=== PATIENT | female | born 1990 | race Caucasian/White ===

== ENCOUNTER → 2018-09-24 | Outpatient (CLI) | payer MEDICAID ==
[~2018-09-24] MED LIST: CETI10CA8 PO; DIPH-740 PO; ESOM20SU2 PO; FLUINH INH; HYDR2TAB4 PO; IBUP800T37 PO; LOR5/325 PO; MONT10TA PO; NO CURRENT MEDS; OMEP-125 PO; ONDA4TAB PO; OXYC-865 PO; PANT40TA65 PO; PNV1CAPS53 PO; PREN-127 PO; PROG200C16 PO; PROM-110 PO; SULF-198 PO; TRIA10.8
[2018-09-24 10:46] LABS: PLATELET COUNT, AUTOMATED 259 K/uL (150-450)
== END ==
LOC: LAB 07:57
PROVIDERS: ATTEND Obstetrics & Gynecology
DX: Z34.90 Encounter for supervision of normal pregnancy, unspecified, unspecified trimester (principal)
CPT/HCPCS: 36415; 81001; 85025; 86592; 86703; 86762; 86850; 86900; 86901; 87088; 87340

== ENCOUNTER → 2018-10-18 | Outpatient (CLI) | payer BC ==
[~2018-10-18] MED LIST changes: +FLU60SYR36 IM
== END ==
LOC: LAB 11:15
PROVIDERS: ATTEND Student in an Organized Health Care Education/Training Program
DX: Z34.91 Encounter for supervision of normal pregnancy, unspecified, first trimester (principal)
CPT/HCPCS: 87491; 87591

== ENCOUNTER → 2018-12-06 | Outpatient (CLI) | payer BC ==
[~2018-12-06] MED LIST changes: +AMOX875T60 PO
== END ==
LOC: LAB 09:36
PROVIDERS: ATTEND Advanced Practice Midwife
DX: N89.8 Other specified noninflammatory disorders of vagina (principal)
CPT/HCPCS: 87210

== ENCOUNTER → 2018-12-27 | Outpatient (CLI) | payer BC ==
--- NOTE | 2018-12-27 13:41 | RADIOLOGY IMAGING REPORT ---
FACILITY: [facility] PATIENT NAME: Tila Whitten : 1990 MR: [id number] V: [id number] EXAM DATE: ORDERING PHYSICIAN: KEMAL LEGER TECHNOLOGIST: Location: [facility] Patient: Tila Whitten : 1990 Visit/Account:[id number] Date of Sevice: 12/27/2018 EXAMINATION: Ultrasound transabdominal OB > 14 weeks with anatomic evaluation HISTORY: 20 week anatomical survey COMPARISON: None. TECHNIQUE: Transabdominal imaging was performed for assessment of the fetus and maternal pelvic structures. T ransvaginal imaging was not performed. FINDINGS: Placenta: Anterior without previa. Uterus: Gravid, otherwise normal Cervix: Long and closed. Maternal Ovaries: Not visualized. Maternal and other adnexa findings: Negative. Intrauterine gestations: One. presentation: Variable heart rate: Normal and regular at 149 bpm Amniotic fluid index: 1022 cm Largest amniotic fluid pocket: 4.31 cm Gestational Parameters: BPD: 4.5 cm 19 weeks/ five days, 52nd percentile HC: 17.13 cm 19 weeks/ six days, 50th percentile AC: 14.3 cm 19 weeks/ five days, 47th percentile FL: 3.14 cm 19 weeks/ six days, 49th percentile Average ultrasound age (AUA): 19 weeks/six days, JOSE C 05/17/2019 Estimated gestational age by JOSE C: 19 weeks/four days, JOSE C 05/19/2019 Estimated weight (EFW): 308 grams +/- 45 grams EFW for JOSE C: 53 percentile Anatomic Survey: Intracranial structures, 4-chamber heart, stomach, kidneys, urinary bladder, spine, 3-vessel cord and cord insertion are unremarkable. Two upper and two lower extremities visualized. Cardiac ventricula r outflow tracts, palate and lips are unremarkable in appearance. IMPRESSION: Single viable fetus in variable presentation with an estimated gestational age by measur ements of 19 weeks and six days. Estimated weight is 308 g equivalent to the 53rd percentile Report Dictated By: Adriana Cruz MD at 12/27/2018 1:19 PM Report E-Signed By: Adriana Cruz MD at 12/27/2018 1:37 PM WSN:[email or web address]
== END ==
LOC: US 08:46
PROVIDERS: ATTEND Advanced Practice Midwife
DX: Z02.9 Encounter for administrative examinations, unspecified (principal)

== ENCOUNTER → 2019-02-14 | Outpatient (CLI) | payer BC ==
[~2019-02-14] MED LIST changes: +DIPH0.5S2 IM
[2019-02-14 09:41] LABS: PLATELET COUNT, AUTOMATED 250 K/uL (150-450)
== END ==
LOC: LAB 08:10
PROVIDERS: ATTEND Advanced Practice Midwife
DX: Z34.92 Encounter for supervision of normal pregnancy, unspecified, second trimester (principal)
CPT/HCPCS: 36415; 82950; 85025

== ENCOUNTER 2019-02-23 15:45 | Outpatient (CLI) | payer BC ==
[~2019-02-23] VITALS: Ht 159.5 cm; Wt 79.4 kg
[2019-02-23 16:07] VITALS: BP 126/73; Ht 159.5 cm; Wt 79.4 kg
[2019-02-23] MEDS ORDERED: NIFEdipine 10 MG CAP PO ONE (16:40)
== END 2019-02-23 17:40 | disposition home or self-care (01) ==
LOC: OB 15:45 → UNDOADMIN 15:45 → L&D 15:45 → UNDODISIN 17:40 → L&D 17:40 → EDSTATUS 03-02 11:07
PROVIDERS: ATTEND Obstetrics & Gynecology
DX: O47.03 False labor before 37 completed weeks of gestation, third trimester (principal); Z3A.28 28 weeks gestation of pregnancy
CPT/HCPCS: 59025; 99213

== ENCOUNTER → 2019-02-23 | Outpatient (CLI) | payer BC | LOC: LAB 15:24 | PROVIDERS: ATTEND Obstetrics & Gynecology | DX: O47.9 False labor, unspecified (principal) | CPT/HCPCS: 87210 ==

== ENCOUNTER → 2019-03-21 | Outpatient (CLI) | payer BC ==
[2019-02-23 16:07] VITALS: BMI 31.2
[~2019-03-21] MED LIST changes: -OMEP-125 PO; +OMEP-126 PO
[2019-03-21 14:15] LABS: PLATELET COUNT, AUTOMATED 290 K/uL (150-450)
== END ==
LOC: LAB 14:03
PROVIDERS: ATTEND Advanced Practice Midwife
DX: Z86.2 Personal history of diseases of the blood and blood-forming organs and certain disorders involving the immune mechanism (principal)
CPT/HCPCS: 36415; 85025

== ENCOUNTER → 2019-04-01 | Outpatient (CLI) | payer BC ==
[2019-02-23 16:07] VITALS: BMI 31.2
--- NOTE | 2019-04-01 14:54 | RADIOLOGY IMAGING REPORT ---
FACILITY: [facility] [place] PATIENT NAME: Tila Whitten : 1990 MR: [id number] V: [id number] EXAM DATE: ORDERING PHYSICIAN: KEMAL LEGER TECHNOLOGIST: Location: [facility] [place] Patient: Tila Whitten : 1990 Visit/Account:[id number] Date of Sevice: 04/01/2019 Limited OB ultrasound Indication: Evaluate growth Comparison: None available FINDINGS: Intrauterine gestations: one presentation: Vertex heart rate: 138 bpm Amniotic fluid index: 16.0 cm Largest amniotic fluid pocket 5.3 cm Placenta: Anterior without previa Uterus: gravid, otherwise normal Gestational Parameters: BPD: 8.2 cm 32 weeks 6 days HC: 29.6 cm 32 weeks 6 days AC: 28.8 cm 32 weeks 6 days FL: 6.6 cm 33 weeks 0 days Average ultrasound age (AUA): 33 weeks 0 days JOSE C: 05/20/2019 Estimated weight (EFW): 2056 g EFW: 31st percentile IMPRESSION: 1. Single live intrauterine gestation with dates and measurements as above. Report Dictated By: Aurelio Phillips at 04/01/2019 2:46 PM Report E-Signed By: Aurelio Phillips at 04/01/2019 2:48 PM WSN:[email or web address]
== END ==
LOC: US 12:51
PROVIDERS: ATTEND Advanced Practice Midwife
DX: O26.843 Uterine size-date discrepancy, third trimester (principal)
CPT/HCPCS: 76815

== ENCOUNTER → 2019-04-15 | Outpatient (CLI) | payer BC ==
[2019-02-23 16:07] VITALS: BMI 31.2
[~2019-04-15] MED LIST changes: +NIFE10CA38 PO
== END ==
LOC: LAB 08:32
PROVIDERS: ATTEND Advanced Practice Midwife
DX: Z36.85 Encounter for antenatal screening for Streptococcus B (principal)
CPT/HCPCS: 87081

== ENCOUNTER → 2019-04-22 | Outpatient (CLI) | payer BC ==
[2019-02-23 16:07] VITALS: BMI 31.2
[~2019-04-22] MED LIST changes: +TRAZ50TA52 PO
--- NOTE | 2019-04-22 14:09 | RADIOLOGY IMAGING REPORT ---
FACILITY: [facility] [place] PATIENT NAME: Tila Whitten : 1990 MR: [id number] V: [id number] EXAM DATE: ORDERING PHYSICIAN: KEMAL LEGER TECHNOLOGIST: Location: [facility] Patient: Tila Whitten : 1990 Visit/Account:[id number] Date of Sevice: 04/22/2019 EXAMINATION: Ultrasound transabdominal OB > 14 weeks with anatomic evaluation HISTORY: Small for gestational age COMPARISON: April 01, 2019 TECHNIQUE: Transabdominal imaging was performed for assessment of the fetus and maternal pelvic structures. T ransvaginal imaging was not performed. FINDINGS: Placenta: Anterior without previa. Uterus: Gravid, otherwise normal Cervix: Not evaluated Maternal Ovaries: Not visualized. Maternal and other adnexa findings: Not evaluated Intrauterine gestations: One. presentation: Cephalic heart rate: Normal and regular at 132 bpm Amniotic fluid index: 20.88 cm Largest amniotic fluid pocket: 6.62 cm Gestational Parameters: BPD: 8.69 cm 35 weeks/ one days, 29% HC: 1.5 to cm 35 weeks/ three days, 9% AC: 31.28 cm 35 weeks/ two days, 33% FL: 7.24 cm 37 weeks/ one days, 70% Average ultrasound age (AUA): 35 weeks/six days, JOSE C 05/21/2019 Estimated gestational age by LMP: 36 weeks/one days, JOSE C 05/19/2019 Estimated weight (EFW): 2748 grams +/- for a one grams EFW for LMP: 39 percentile Anatomic Survey: Anatomic survey not performed IMPRESSION: Single viable fetus in cephalic presentation with an estimated gestational age by measur ements of 35 weeks and six days. The estimated gestational age by LMP is 36 weeks and one day. Estimated weight is 2748 g equivalent to the 39th percentile Report Dictated By: Adriana Cruz MD at 04/22/2019 1:58 PM Report E-Signed By: Adriana Cruz MD at 04/22/2019 2:03 PM WSN:[email or web address]
== END ==
LOC: RAD 09:04
PROVIDERS: ATTEND Advanced Practice Midwife
DX: O26.843 Uterine size-date discrepancy, third trimester (principal)
CPT/HCPCS: 76815

== ENCOUNTER 2019-05-04 16:37 | Outpatient (CLI) | payer BC ==
[2019-05-15 11:55] VITALS: BMI 29.8
== END 2019-05-04 20:11 | disposition home or self-care (01) ==
LOC: OB 16:37 → L&D 16:37 → INTOOBSV 16:37 → UNDOADMOB 16:37 → OB 16:37 → OBSVTOIN 16:37 → UNDODISIN 20:11 → L&D 20:11 → EDSTATUS 05-16 13:04
PROVIDERS: ATTEND Obstetrics & Gynecology
DX: O47.1 False labor at or after 37 completed weeks of gestation (principal); Z3A.37 37 weeks gestation of pregnancy
CPT/HCPCS: 81001; 99213

== ENCOUNTER → 2019-05-11 | Outpatient (CLI) | payer BC ==
[2019-02-23 16:07] VITALS: BMI 31.2
--- NOTE | 2019-05-11 14:43 | RADIOLOGY IMAGING REPORT ---
FACILITY: [facility] [place] PATIENT NAME: Tila Whitten : 1990 MR: [id number] V: [id number] EXAM DATE: ORDERING PHYSICIAN: KEMAL LEGER TECHNOLOGIST: Location: [facility] Patient: Tila Whitten : 1990 Visit/Account:[id number] Date of Sevice: 05/11/2019 EXAMINATION: Ultrasound transabdominal OB > 14 weeks with anatomic evaluation HISTORY: Size less than dates. COMPARISON: OB ultrasound 04/22/2019 TECHNIQUE: Transabdominal imaging was performed for assessment of the fetus and maternal pelvic structures. T ransvaginal imaging was not performed. FINDINGS: Placenta: Anterior without previa. Uterus: Gravid, otherwise normal Cervix: Long and closed. Maternal Ovaries: Not visualized. Maternal and other adnexa findings: Negative. Intrauterine gestations: One. presentation: Cephalic heart rate: 123 bpm. Amniotic fluid index: 17.5 cm Largest amniotic fluid pocket: 5.08 cm Gestational Parameters: BPD: 9.08 cm 36 weeks/ 6 days, 26th percentile HC: 33.23 cm 38 weeks/ 0 days, 17 percentile AC: 31.50 cm 35 weeks/ 4 days, less than 2nd percentile FL: 7.46 cm 38 weeks/ 2 days, 39 percentile Average ultrasound age (AUA): 37 weeks/2 days, Estimated gestational age by LMP: 38 weeks/6 days, JOSE C 05/19/2019 Estimated weight (EFW): 2974 grams +/- 434 grams EFW for LMP: 16th percentile Anatomic Survey: The visualized portions of the abdomen, cranium, and upper lower extremities are normal. Biophysical profile score: breathing movement: 2 Gross body movement: 2 tone: 2 Amniotic fluid volume: 2 Impression: 1. Biophysical profile score 8/8 points. 2. Single living intrauterine fetus, cephalic presentation. 3. Ultrasound age is 37 weeks and 2 days, which is consistent with gestational age based on LMP. Ge stational age based on LMP is 38 weeks and 6 days, corresponding to an estimated date of delivery 05/19. 4. weight is 2974 g, which is at the 16th percentile based on gestational age. IMPRESSION: Report Dictated By: Ashwin Nieves at 05/11/2019 2:08 PM Report E-Signed By: Ashwin Nieves at 05/11/2019 2:15 PM WSN:[email or web address]
--- NOTE | 2019-05-11 14:44 | RADIOLOGY IMAGING REPORT ---
FACILITY: [facility] [place] PATIENT NAME: Tila Whitten : 1990 MR: [id number] V: [id number] EXAM DATE: ORDERING PHYSICIAN: KEMAL LEGER TECHNOLOGIST: Location: [facility] [place] Patient: Tila Whitten : 1990 Visit/Account:[id number] Date of Sevice: 05/11/2019 EXAMINATION: Ultrasound transabdominal OB > 14 weeks with anatomic evaluation HISTORY: Size less than dates. COMPARISON: OB ultrasound 04/22/2019 TECHNIQUE: Transabdominal imaging was performed for assessment of the fetus and maternal pelvic structures. T ransvaginal imaging was not performed. FINDINGS: Placenta: Anterior without previa. Uterus: Gravid, otherwise normal Cervix: Long and closed. Maternal Ovaries: Not visualized. Maternal and other adnexa findings: Negative. Intrauterine gestations: One. presentation: Cephalic heart rate: 123 bpm. Amniotic fluid index: 17.5 cm Largest amniotic fluid pocket: 5.08 cm Gestational Parameters: BPD: 9.08 cm 36 weeks/ 6 days, 26th percentile HC: 33.23 cm 38 weeks/ 0 days, 17 percentile AC: 31.50 cm 35 weeks/ 4 days, less than 2nd percentile FL: 7.46 cm 38 weeks/ 2 days, 39 percentile Average ultrasound age (AUA): 37 weeks/2 days, Estimated gestational age by LMP: 38 weeks/6 days, JOSE C 05/19/2019 Estimated weight (EFW): 2974 grams +/- 434 grams EFW for LMP: 16th percentile Anatomic Survey: The visualized portions of the abdomen, cranium, and upper lower extremities are normal. Biophysical profile score: breathing movement: 2 Gross body movement: 2 tone: 2 Amniotic fluid volume: 2 Impression: 1. Biophysical profile score 8/8 points. 2. Single living intrauterine fetus, cephalic presentation. 3. Ultrasound age is 37 weeks and 2 days, which is consistent with gestational age based on LMP. Ge stational age based on LMP is 38 weeks and 6 days, corresponding to an estimated date of delivery 05/19. 4. weight is 2974 g, which is at the 16th percentile based on gestational age. IMPRESSION: Report Dictated By: Ashwin Nieves at 05/11/2019 2:08 PM Report E-Signed By: Ashwin Nieves at 05/11/2019 2:15 PM WSN:[email or web address]
== END ==
LOC: US 12:13
PROVIDERS: ATTEND Advanced Practice Midwife
DX: O26.843 Uterine size-date discrepancy, third trimester (principal)

== ENCOUNTER 2019-05-13 04:50 | Inpatient (IN) | payer BC ==
[2019-05-13] VITALS (25 sets, daily range): BP systolic 91–118; BP diastolic 58–88; BMI 29.8
[~2019-05-13] VITALS: Ht 165.1 cm; Wt 81.2 kg
[2019-05-13] MEDS ORDERED: ceFAZolin(*) 2GM/D5W 50ML 50 ML IVPB ONE (04:53)
[2019-05-13] MEDS ORDERED: ONDANSETRON 4 MG/2 ML VIAL IVP ONE (04:55)
[2019-05-13] MEDS ORDERED: METOCLOPRAMIDE 10 MG/2 ML SDV IVP ONE (04:55)
[2019-05-13] MEDS ORDERED: FAMOTIDINE 20 MG/50 ML PREMIX IVPB ONE (04:55)
[2019-05-13 05:28] LABS: PLATELET COUNT, AUTOMATED 298 K/uL (150-450)
[2019-05-13] MEDS: LR(*) 1000 ML BAG 1,000 ML IV SCH ×3 (05:32→07:01)
[2019-05-13] MEDS ORDERED: ONDANSETRON 4 MG/2 ML VIAL IVP PRN (06:50)
[2019-05-13] MEDS ORDERED: NALBUPHINE HCL 10 MG/ML AMP IVP PRN (06:50)
[2019-05-13] MEDS ORDERED: diphenhydrAMINE 50 MG/ML VIAL IV PRN (06:50)
[2019-05-13] MEDS ORDERED: fentaNYL CITR 100 MCG/2 ML AMP IT PRN (06:50)
[2019-05-13] MEDS ORDERED: SCOPOLAMINE 1.5 MG PATCH TD PRN (06:50)
--- NOTE | 2019-05-13 06:50 | Anesthesia OB Pre-Anes Eval ---
History of Present Illness Anesthesia Start Date: May 13, 2019 Anesthesia Start Time: 06:28 OB Anesthesia Diagnosis: repeat c/section Complications: Intrauterine growth restriction EDC: May 19, 2019 : 4 Para: 1 Vital Signs: Hematology Test 05/13/19 05:15 White Blood Count 12.4 k/uL (4.5-11.0) H Red Blood Count 4.17 M/uL (4.17-5.56) Hemoglobin 11.4 g/dL (12.0-16.0) L Hematocrit 33.8 % (34.0-47.0) L Mean Corpuscular Volume 81.2 fL (80.0-96.0) Mean Corpuscular Hemoglobin 27.4 pg (26.0-33.0) Mean Corpuscular Hemoglobin Concent 33.7 g/dL (32.0-36.0) Red Cell Distribution Width 14.2 % (11.5-14.5) Platelet Count 298 K/uL (150-450) Mean Platelet Volume 7.2 fL (7.2-11.1) Neutrophils (%) (Auto) 70.5 % (39.4-72.5) Lymphocytes (%) (Auto) 17.7 % (17.6-49.6) Monocytes (%) (Auto) 8.5 % (4.1-12.4) Eosinophils (%) (Auto) 2.5 % (0.4-6.7) Basophils (%) (Auto) 0.8 % (0.3-1.4) Nucleated RBC Relative Count (auto) 0.1 /100WBC Neutrophils # (Auto) 8.7 K/uL (2.0-7.4) H Lymphocytes # (Auto) 2.2 K/uL (1.3-3.6) Monocytes # (Auto) 1.0 K/uL (0.3-1.0) Eosinophils # (Auto) 0.3 K/uL (0.0-0.5) Basophils # (Auto) 0.1 K/uL (0.0-0.1) Nucleated RBC Absolute Count (auto) 0.01 K/uL Peripheral Blood Smear Yes Y/N Vital Signs Date Time Temp Pulse Resp B/P (MAP) Pulse Ox O2 Delivery O2 Flow Rate FiO2 05/13/19 05:33 98.3 107 18 118/75 (89) 96 Room Air Pain Ratin Heart Tones: 132 Result Diagram: 05/13/19 0515 Height (Inches): 65.00 Weight (Pounds): 179 BMI (kg/m2): 30 GBS negative Past Medical History Medical History: other (Hx of UTI, dysphagia) Surgical History: other (Hysteroscopic polypectomy, EGDs, Carpal tunnel release left) Previous Anesthesia: general Attended Childbirth Classes?: No Hx Anesthesia Reactions: Yes (Nausea after CTR and prior C/S.) Hx Family Anesthesia Reaction: No Home Meds Active Scripts Trazodone Hcl (TRAZODONE HCL) 50 Mg Tablet, 50 MG PO QHS for Sleep for 30 Days, #30 TAB 0 Refills take 1/2- 1 tab at bedtime for sleep Prov:LEGERKEMAL M [facility] 04/19/19 Nifedipine 10 Mg Cap (PROCARDIA 10 MG CAP) 10 Mg Capsule, 10 MG PO Q8H PRN for CONTRACTIONS, #30 CAPSULE Prov:LEGERKEMAL [facility] 04/08/19 Reported Medications Vits W-Ca,Fe,Fa(<1MG) ( VITAMINS) 1 Each Tablet, 1 EACH PO DAILY, TAB 09/24/18 Diphenhydramine Hcl (BENADRYL) 25 Mg Capsule, 25 MG PO Q6-8H, CAPSULE 09/24/18 Esomeprazole Magnesium (NEXIUM) 20 Mg Suspdr.pkt, 20 MG PO 09/24/18 Allergies: Coded Allergies: levofloxacin (Verified Allergy, Unknown, HEADACHE,HOT COLD FLASHES, 07/13/16) Anesthesia OB ROS Neurological: No migraines/headaches, No seizures, No neuropathy, No other ENT: Denies Tooth caps, Denies Loose teeth, Denies Chipped teeth, Denies Dentures, Denies Bridges, Denies Retainers, Denies Veneers, Denies Implants, Denies Tongue ring, Denies Other Pulmonary: No asthma, No smoker (pks/day/yrs), No other Airway Class: ll Cardiovascular ROS: No edema, No arrhythmia, No other GI ROS: NPO Last Solids Date: May 12, 2019 Last Solids Time: 21:00 ROS: No Herpes, No STD(s), No Liver Disease, No Renal Disease, No Other Endocrine ROS: No diabetes, No gestational diabetes, No thyroid disorder, No other Musculoskeletal ROS: No low back pain, No low back injury, No scoliosis, No other ASA Classification: 2 Assessment and Plan Anesthesia Plan: SAB (with intrathecal narcotics) LEONEL HOWE CRNA May 13, 2019 06:50
--- NOTE | 2019-05-13 07:39 | History & Physical ---
History of Present Illness Age of Patient: 28 : 4 Para or TPAL: 1021 EDC per LMP: May 19, 2019 Estimated Gestational Age: 39.1 Chief Complaint Scheduled RLTCS History of Present Illness Pt is a 28 y/o @ 39-1/7 wga who presents to L&D for a scheduled RLTCS. Pt denies any concerns at this time. Good movement. No vaginal bleeding. No cramps or contractions. No questions or concerns at this time. History Patient's Blood Type: A Positive Rubella Status: Non-Immune Group B Strep Screen: Positive Obstetrical History: Prior C/S for FTP and poor heart tone Past Medical History: History of ITP Allergies: Coded Allergies: levofloxacin (Verified Allergy, Unknown, HEADACHE,HOT COLD FLASHES, 07/13/16) Social History: Denies X 3 Family History: FH: diabetes mellitus FATHER MGM FH: heart disease PGF FH: hypercholesterolemia FH: hypertension FATHER MGM FH: irritable bowel syndrome MGM FH: leukemia PGF ITP PATIENT (in ) Med Rec Home Meds Active Scripts Trazodone Hcl (TRAZODONE HCL) 50 Mg Tablet, 50 MG PO QHS for Sleep for 30 Days, #30 TAB 0 Refills take 1/2- 1 tab at bedtime for sleep Prov:LEGERKEMAL [facility] 04/19/19 Nifedipine 10 Mg Cap (PROCARDIA 10 MG CAP) 10 Mg Capsule, 10 MG PO Q8H PRN for CONTRACTIONS, #30 CAPSULE Prov:AFRICAKEMAL [facility] 04/08/19 Reported Medications Vits W-Ca,Fe,Fa(<1MG) ( VITAMINS) 1 Each Tablet, 1 EACH PO DAILY, TAB 09/24/18 Diphenhydramine Hcl (BENADRYL) 25 Mg Capsule, 25 MG PO Q6-8H, CAPSULE 09/24/18 Esomeprazole Magnesium (NEXIUM) 20 Mg Suspdr.pkt, 20 MG PO 09/24/18 Review of Systems All Systems Reviewed/Normal: Yes, Except as Noted Constitutional: No Fever, No Weight Loss, No Weight Gain, No Chills, No Night Sweats, No Other Neurological: No Syncope, No Confusion, No Weakness, No Dizziness, No Slurred Speech, No Other Eyes: No Vision Change, No Loss of Vision, No Photophobia, No Other ENT: No Hearing Loss, No Sinus Congestion, No Sore Throat, No Ear Ache, No Tinnitus, No Other Cardiovascular: No Chest Pain, No Palpitations, No Orthostatic Hypotension, No Other Respiratory: No Shortness of Breath, No Cough, No Wheezing, No Other Gastrointestinal: No Nausea, No Vomiting, No Diarrhea, No Dysphagia, No Constipation, No Early Satiety, No Hematemesis, No Hematochezia, No Melena, No Abdominal Pain, No Other Genitourinary: No Dysuria, No Hematuria, No Urinary Incontinence, No Other Musculoskeletal: No Pain, No Sprain, No Strain, No Impaired Mobility, No Other Psychiatric: No Depression, No Anxiety, No Other Exam General Exam Vital Signs Vital Signs Date Time Temp Pulse Resp B/P (MAP) Pulse Ox O2 Delivery O2 Flow Rate FiO2 05/13/19 05:33 98.3 107 18 118/75 (89) 96 Room Air General Apperance: Alert/Awake/No Acute Distress Neuro: No Gross deficits Eyes: Normal Extraocular Movement & Vison, PERRLA ENT: Normal Cardiovascular: Regular Rate and Rhythm Respiratory: No Respiratory Distress, Clear to Auscultation Abdomen: Soft, Non-Tender, Non-Distended, Gravid - Non-Tender : Normal Musculoskeletal: No Weakness/Pain Extremities: No Cyanosis,Clubbing or Edema Integumentary: Skin Intact without Lesions or Rash Psychological: Alert & Oriented X3, Appropriate Mood & Affect Fetus Feeling Movement?: Yes Heart Tones: 120 Heart Tone Variabilty: Moderate FHT Accelerations: 15X15 FHT Decelerations: None FHT Category: I Medical Decision Making Data Points Result Diagram: 05/13/19 0515 Pre-Admit Course Medical Record Review: Yes VTE Prophylasis: Adult Deep Vein Thrombosis/Pulmonary: No Assessment and Plan 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 Expect 2 days post stay. DONNA PAVON DO May 13, 2019 07:39
[2019-05-13] MEDS ORDERED: OXYTOCIN 30 UNIT/NS 500 ML 500 ML IV PRN (08:51)
[2019-05-13] MEDS ORDERED: LANOLIN OINT 7 GM TUBE TP PRN (08:55)
[2019-05-13] MEDS ORDERED: ZOLPIDEM TARTRATE 5 MG TAB PO PRN (08:55)
[2019-05-13] MEDS ORDERED: SIMETHICONE 80 MG CHEW CHEW PRN (08:55)
[2019-05-13] MEDS ORDERED: PROMETHAZINE 25 MG/ML 1 ML AMP IVP PRN (08:55)
[2019-05-13] MEDS ORDERED: oxyCODON/ACET (*)5/325MG (CII) 1 TAB TAB PO PRN (08:55)
[2019-05-13] MEDS ORDERED: INFLUENZA VIRUS VAC 0.5ML SYR IM ONE (08:55)
[2019-05-13] MEDS ORDERED: ONDANSETRON 4 MG/2 ML VIAL IV PRN (08:55)
--- NOTE | 2019-05-13 08:58 | Post Operative Note ---
Operative Note - PATIENT ADVOCATE Operative Day Date: May 13, 2019 Time: 08:54 Physicians Surgeon: Donna Denny DO Mop Man: Mary Taylor Anesthesia: Spinal Diagnosis Pre-Op Diagnosis: 28 y/o @ 39-1/7 Oligiohydramnios Prior C/S X 1 Post-Op Diagnosis: Same Procedure Findings: Live born female at 0754 with APGARS 8/9 weight 2766 gm 6#1oz. 3VC/IP. Normal tubes and ovaries bilaterally. Procedure(s): RLTCS Specimen Removed:(Maybe N/A): 0 Complications: 0 known Fluids Fluids: 1400 u/o 250 Estimated Blood Loss: 700 Dictated Date OP Note Dictated: May 13, 2019 Time OP Note Dictated: 10:41 DONNA DENNY DO May 13, 2019 08:57
[2019-05-13] MEDS: FAMOTIDINE 20 MG TAB PO SCH ×2 (09:00→21:18)
[2019-05-13] MEDS: DOCUSATE CALCIUM 240 MG CAP PO SCH ×2 (09:00→21:18)
[2019-05-13] MEDS: DLR(*) 1000 ML BAG 1,000 ML IV PRN ×3 (10:25→23:12)
[2019-05-13] MEDS: ACETAMINOPHEN 325 MG TAB PO PRN ×2 (11:08→23:12)
--- NOTE | 2019-05-13 13:10 | OPERATIVE REPORT 1 ---
EVENT DATE: May 13, 2019 SURGEON: Jerald Denny DO ANESTHESIA: Spinal by Quita Whitaker INVENTORY ACCOUNTANT: Mary Reilly PREOPERATIVE DIAGNOSIS 1. 28-year-old 4, para 1 at 39 and 1/7 weeks gestation by LMP as well as early first-trimester ultrasound. 2. Oligohydramnios. 3. Prior x1. POSTOPERATIVE DIAGNOSIS 1. 28-year-old 4, para 1 at 39 and 1/7 weeks gestation by LMP as well as early first-trimester ultrasound. 2. Oligohydramnios. 3. Prior x1. 4. Delivered. PROCEDURE PERFORMED Repeat low-transverse section. FINDINGS Live born female infant at 0754 with Apgars of 8 and 9, weighing 2766 grams, 6 pounds 1 ounce, 3-vessel cord, intact placenta, normal tubes and ovaries bilaterally. ESTIMATED BLOOD LOSS 700 cc. IV FLUIDS 1400 cc. lactated ringers. URINE OUTPUT 250 cc. COMPLICATIONS None known. CONDITION Stable x2 to recovery. Counts correct for all needles, laps, sponge and instruments. HOSPITAL COURSE The patient is a 28-year-old 4, para 1, who presented to Labor and Delivery for a scheduled repeat section. The patient was counselled accordingly and signs the appropriate consents. The patient was then taken to the operating room. DESCRIPTION OF PROCEDURE The patient was taken to the operating room where she was placed in the dorsal supine position after she had received a spinal anesthesia. She was then prepped and draped in the usual sterile manner. Skin testing was performed and found to be adequate to the level of the umbilicus. A Pfannenstiel incision was then made with the scalpel. This was extended sharply down through the subcutaneous tissue all the way to the fascia. The fascia was notched bilaterally until rectus muscles were visualized. The fascial incision was extended laterally in a curvilinear manner on both sides. The rectus muscles were off the fascia both superiorly and inferiorly. The rectus muscles were in the midline. The midline peritoneum was grasped with hemostats and entered sharply with Metzenbaum scissors. That incision was then extended superiorly and inferiorly with Metzenbaum scissors. The bladder blade was placed. the bladder flap was created. The bladder blade was replaced. A low-transverse incision was made on the uterus. This was carried all the way down to the level of the amnion. The amnion was visualized. The surgeon's finger was placed inside the hysterotomy. The incision was then extended in a curvilinear manner. Clear amniotic fluid with artificial rupture of membranes. The infant's head was grasped, raised, brought to the level of the hysterotomy. With fundal pressure, the 's head delivered in a controlled manner, followed by the posterior shoulders with a gentle downward motion, the anterior shoulders with a gentle upward motion. The remainder of the 's body delivered spontaneously. The mouth and nose were bulb suctioned. The cord was clamped x2 and cut after approximately 1 minute post-delivery. The patient was shown her and the infant was then handed to awaiting nursing staff to be taken to the warmer to be vigorously cleaned and dried. Cord blood gas was obtained. The placenta delivered with manual extraction. The uterus was then exteriorized and cleaned with a dry laparotomy. The hysterotomy was closed with a 0 Monocryl in a running manner. Imbrication stitch was then used to help with hemostasis. There was a hematoma on midline of the hysterotomy. A [id number] was placed over the hematoma secondary to rapid expansion during repair. With the hematoma and the hysterotomy incision stable, the posterior gutter was cleaned of all clot and debris. The uterus was placed back inside the abdomen. The hysterotomy was inspected and found to be hemostatic. The right and left gutters were cleaned of all clot and debris. The peritoneum was closed in a running manner with a 2-0 Monocryl. The muscles were inspected and found to be hemostatic. The fascia was closed with a 0 looped PDS in a running manner. Copious amounts of normal saline irrigation was then used on the subcutaneous tissues. The subcutaneous tissues was deemed greater than 2 cm and was closed with a 3-0 Monocryl in the usual manner. The skin incision was then closed in a subcuticular manner with a 4-0 Monocryl. The incision then had Dermabond placed over it. The patient was then cleaned. She was transferred to the recovery room in stable condition. MILVIA
[2019-05-13] MEDS: KETOROLAC 30 MG/ML VIAL IVP SCH ×2 (14:05→19:53)
[2019-05-14] MEDS: KETOROLAC 30 MG/ML VIAL IVP SCH (01:58)
[2019-05-14 03:50] VITALS: BP 93/54
[2019-05-14] MEDS: ACETAMINOPHEN 325 MG TAB PO PRN (05:56)
[2019-05-14 06:59] LABS: PLATELET COUNT, AUTOMATED 204 K/uL (150-450)
[2019-05-14 08:00] VITALS: BP 99/59
[2019-05-14] MEDS: DOCUSATE CALCIUM 240 MG CAP PO SCH ×2 (08:17→20:07)
[2019-05-14] MEDS: FAMOTIDINE 20 MG TAB PO SCH ×2 (08:17→20:07)
[2019-05-14] MEDS: IBUPROFEN 800 MG TAB PO SCH ×3 (08:18→23:57)
--- NOTE | 2019-05-14 09:49 | OB/GYN Progress Note ---
OB Subjective Progress Notes Subjective Pt is POD #1 from [facility]. Pt had kilpatrick catheter removed this morning. Saline locked IV. Tolerating regular diet. Ambulatory in room only. Has been unable to keep Percocet down. Pain controlled with Toradol and Astromorph. . Lochia appropriate GI: NEG Nausea, NEG Vomiting, NEG Flatus, NEG Bowel Movement : Voiding Well, Vaginal Bleeding, Moderate Pain: Mild, Tolerating PO Pain Meds Neurological: No Headache, No Other Eyes: No Visual Disturbances OB Objective Physical Exam Vital Signs Date Time Temp Pulse Resp B/P (MAP) Pulse Ox O2 Delivery O2 Flow Rate FiO2 05/14/19 08:00 98.3 84 16 99/59 (72) 97 Room Air 05/14/19 03:50 0.5 Intake and Output 05/14/19 07:03 Intake Total 5267 ml Output Total 4150 ml Balance 1117 ml Intake Oral 2360 ml IV Total 2907 ml Output Urine Total 4100 ml Emesis 50 ml # Voids 1 # Emeses 1 General Appearance: Alert/Awake/No Acute Distress Neurological: No Gross deficits Eyes: Normal Extraocular Movement & Vison, PERRLA Respiratory: No Respiratory Distress, Clear to Auscultation Abdomen: Fundus Firm Incision: Clean, Dry, Intact, Dermabond Extremities: No Cyanosis,Clubbing or Edema Integumentary: Skin Intact without Lesions or Rash Psychological: Alert & Oriented X3, Appropriate Mood & Affect Result Diagram: 05/14/19 0646 Assessment and Plan 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 Will d/c IV. Change percocet to [place]. Repeat CBC in the AM. start Feso4. (3) Oligohydramnios antepartum Status: Acute DONNA PAVON DO May 14, 2019 09:49
[2019-05-14] MEDS ORDERED: IBUP800T37 PO (09:52)
[2019-05-14] MEDS ORDERED: LOR5/325 PO (09:52)
--- NOTE | 2019-05-14 09:56 | OB/GYN Discharge Summary ---
DONNA DENNY DO 05/14/19 0956: Discharge Summary Reason for Hosp/Final Diag: (1) 39 weeks gestation of (2) History of delivery, antepartum Hospital Course & Plan: Pt presented for a scheduled RLTCS. Underwent pro cedure with out any difficulty. Her POD # 1. H/H came back as 8. This was repeated and came back as. She was started on iron therapy. She remained in the hospital for 2 days post operatively. She was meeting ambulatory goals and guidelines and was discharged. (3) Oligohydramnios antepartum Status: Acute Lates Vital Signs Vital Signs Date Time Temp Pulse Resp B/P (MAP) Pulse Ox O2 Delivery O2 Flow Rate FiO2 05/14/19 08:00 98.3 84 16 99/59 (72) 97 Room Air 05/14/19 03:50 0.5 Weight (Pounds): 179 Result Diagram: 05/14/19 0646 Condition: Improved Discharge: Home Home Meds Active Scripts Hydrocodone Bit/Acetaminophen (HYDROCODON-ACETAMINOPHEN 5-325) 1 Each Tablet, 1- 2 TAB PO Q6H PRN for PAIN, #20 TAB 0 Refills Prov:DONNA DENNY DO 05/14/19 Trazodone Hcl (TRAZODONE HCL) 50 Mg Tablet, 50 MG PO QHS for Sleep for 30 Days, #30 TAB 0 Refills take 1/2- 1 tab at bedtime for sleep Prov:KEMAL LEGER [facility] 04/19/19 Nifedipine 10 Mg Cap (PROCARDIA 10 MG CAP) 10 Mg Capsule, 10 MG PO Q8H PRN for CONTRACTIONS, #30 CAPSULE Prov:KEMAL LEGER [facility] 04/08/19 Reported Medications Vits W-Ca,Fe,Fa(<1MG) ( VITAMINS) 1 Each Tablet, 1 EACH PO DAILY, TAB 09/24/18 Diphenhydramine Hcl (BENADRYL) 25 Mg Capsule, 25 MG PO Q6-8H, CAPSULE 09/24/18 Esomeprazole Magnesium (NEXIUM) 20 Mg Suspdr.pkt, 20 MG PO 09/24/18 Follow up with: [facility] [phone] Follow up in: 6 wks PP or PO, 2 wks PO Discharge Diet: As Tolerates, Increase Fluid Intake Discharge Activity: As Tolerates, No Heavy Lifting x 6 wks, Pelvic Rest TILA ARTEAGA CNM 05/15/19 1214: Discharge Summary Reason for Hosp/Final Diag: (1) care following delivery Hospital Course & Plan: A: Post op, following , meeting milestones. P 1. DC to home with instructions; follow up 1-[address] Denny or Janeth Leger CNM 2. Rx for Loa sent to [facility]. Result Diagram: 05/14/19 0646 H/H 29.7 and 9.7 on 05/15 Condition: Improved Discharge: Home, Self Mcfp Meds Active Scripts Hydrocodone Bit/Acetaminophen (HYDROCODON-ACETAMINOPHEN 5-325) 1 Each Tablet, 1- 2 TAB PO Q6H PRN for PAIN, #20 TAB 0 Refills Prov:DONNA DENNY DO 05/14/19 Trazodone Hcl (TRAZODONE HCL) 50 Mg Tablet, 50 MG PO QHS for Sleep for 30 Days, #30 TAB 0 Refills take 1/2- 1 tab at bedtime for sleep Prov:KEMAL LEGER CNM 04/19/19 Nifedipine 10 Mg Cap (PROCARDIA 10 MG CAP) 10 Mg Capsule, 10 MG PO Q8H PRN for CONTRACTIONS, #30 CAPSULE Prov:KEMAL LEGER CNM 04/08/19 Reported Medications Vits W-Ca,Fe,Fa(<1MG) ( VITAMINS) 1 Each Tablet, 1 EACH PO DAILY, TAB 09/24/18 Diphenhydramine Hcl (BENADRYL) 25 Mg Capsule, 25 MG PO Q6-8H, CAPSULE 09/24/18 Esomeprazole Magnesium (NEXIUM) 20 Mg Suspdr.pkt, 20 MG PO 09/24/18 Follow up with: [facility] [phone] Follow up in: 6 wks PP or PO, 2 wks PO Discharge Diet: As Tolerates Discharge Activity: No Heavy Lifting x 6 wks, No Heavy Lifting > 10lb, Pelvic Rest DONNA DENNY DO May 14, 2019 09:56 TILA ARTEAGA CNM May 15, 2019 12:14
[2019-05-14 11:00] VITALS: BP 97/62
[2019-05-14] MEDS: APAP/HYDROCODONE 325/5 TAB PO PRN ×2 (13:40→20:08)
[2019-05-14 15:00] VITALS: BP 101/65
--- NOTE | 2019-05-14 17:34 | Anesthesia Post Eval Note ---
Anesthesia Post Eval Note Vital Signs 05/14/19 05/14/19 05/14/19 03:50 15:00 15:44 Temp 98.6 Pulse 92 Resp 16 B/P (MAP) 101/65 (77) Pulse Ox 92 O2 Delivery Room Air O2 Flow Rate 0.5 Pt able to participate in Eval: Yes Cardiovascular Status: Satisfactory Respiratory Status: Satisfactory Pain Managment: Satisfactory PO Nausea/Vomiting: Satisfactory Temperature Management: Satisfactory Mental Status: Satisfactory, Alert, Oriented X3 Post-Op Hydration Status: Satisfactory, Tolerating PO Well, Voiding w/o Difficulty Anesthesia Type: HAROLDO HUTCHISON CRNA May 14, 2019 17:34
[2019-05-14] MEDS: FERROUS SULFATE 325 MG TAB PO SCH (18:10)
[2019-05-14 20:00] VITALS: BP 108/73
[2019-05-15] VITALS: BP 96/62
[2019-05-15] MEDS: APAP/HYDROCODONE 325/5 TAB PO PRN ×2 (04:09→12:24)
[2019-05-15 07:05] VITALS: BP 108/76
[2019-05-15] MEDS: IBUPROFEN 800 MG TAB PO SCH (08:54)
[2019-05-15] MEDS: FERROUS SULFATE 325 MG TAB PO SCH (08:54)
[2019-05-15] MEDS: DOCUSATE CALCIUM 240 MG CAP PO SCH (08:54)
[2019-05-15] MEDS: FAMOTIDINE 20 MG TAB PO SCH (08:54)
[2019-05-15] MEDS ORDERED: DIPHTH/TETANUS/ACEL. PERTUSSIS IM ONLY ONE (08:55)
[2019-05-15] MEDS ORDERED: MEASLES,MUMP,RUBELLA VAC 0.5ML SUBQ ONE (08:55)
[2019-05-15 11:55] VITALS: Ht 165.1 cm; Wt 81.2 kg
[2019-05-15] MEDS ORDERED: MAGNESIUM HYDROXIDE* 30ML UDCP PO ONE ×2 (12:15)
--- NOTE | 2019-05-15 12:34 | OB/GYN Progress Note ---
OB Subjective Progress Notes Subjective Pt denies acute pain, desires to go home today. GI: POS Flatus; NEG Nausea, NEG Vomiting, NEG Bowel Movement : Voiding Well, Vaginal Bleeding, Scant Pain: Mild, Tolerating PO Pain Meds OB Objective Physical Exam Vital Signs Date Time Temp Pulse Resp B/P (MAP) Pulse Ox O2 Delivery O2 Flow Rate FiO2 05/15/19 07:05 97.9 79 16 108/76 (87) 95 Room Air 05/14/19 03:50 0.5 Intake and Output 05/15/19 07:03 Intake Total 1210 ml Output Total 835 ml Balance 375 ml Intake Oral 1210 ml Output Urine Total 835 ml # Voids 2 General Appearance: Alert/Awake/No Acute Distress Neurological: No Gross deficits Eyes: Normal Extraocular Movement & Vison, PERRLA Cardiovascular: Normal Rhythm & Peripheral Pulses Respiratory: No Respiratory Distress, Clear to Auscultation Abdomen: Soft, Non-Tender, Non-Distended, Bowel Sounds Present, Fundus Firm, Non-Tender Incision: Clean, Dry, Intact, Dermabond Extremities: No Cyanosis,Clubbing or Edema Integumentary: Skin Intact without Lesions or Rash Psychological: Alert & Oriented X3, Appropriate Mood & Affect Result Diagram: 05/15/19 0853 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 Will dc to home to follow up Janeth Galloway CNM in 2 and 6 weeks post operatively 2. Rx sent to [facility] 3. Will dc with written information TILA ARTEAGA CNM May 15, 2019 12:34
== END 2019-05-15 13:45 | disposition home or self-care (01) | DRG 787 ==
LOC: OB 04:50 → PED 17:13
PROVIDERS: ADMIT Student in an Organized Health Care Education/Training Program; ATTEND Student in an Organized Health Care Education/Training Program
PROC: 10D00Z1 Extraction of Products of Conception, Low, Open Approach (ICD-10-PCS; principal; 2019-05-13 07:30)
DX: O34.211 Maternal care for low transverse scar from previous cesarean delivery (principal); O41.03X0 Oligohydramnios, third trimester, not applicable or unspecified; Z88.8 Allergy status to other drugs, medicaments and biological substances; Z3A.39 39 weeks gestation of pregnancy; Z37.0 Single live birth
CPT/HCPCS: 36415; 85025; 85027; 86850; 86900; 86901; 90471; 90707; J0690; J1100; J1885; J2270; J2405; J2590; J2765; J3010; J7120